=== PATIENT | male | born 1965 | race Caucasian/White ===

== ENCOUNTER → 2016-09-24 | Outpatient (REF) | payer OTHER ==
[~2016-09-24] MED LIST: /BACL20TA OR; /ESOM40CA OR; /FENO48TA OR; /ROPI5TA OR; AMBI10TA OR; ATEN50TA2 PO; COLE5GRA PO; COUM10TA OR; COUM10TA PO; DARV100T OR; DARV65CA OR; DEPA500T OR; ENOX40SY SC; FLEXERIL OR; FLEXERIL PO; GEMF600T PO; IBUP600T OR; IBUP800T OR; LAMI25TA PO; LEVO30TA PO; LISI-542 PO; MELATONIN OR; METF-414 PO; NAPR500T PO; NEUR100C OR; NEUR300C PO; PANT40TA2 PO; PERC5TAB8 OR; PRIM250T3 OR; PROP10TAB OR; REQU2TAB3 OR; SERT50TA2 OR; SIMV40TA2 OR; SYNTHROID PO; TOPI50TA OR; TRAM50TA2 OR; VERA120T OR; VIT D 2000 PO; VIT D 4000 OR; WARF1TAB OR; ZOCO40TA OR; ZOLO50TA OR; meloxicam OR
[2016-09-24 12:58] LABS: BASO # 0.1 K/mm3 (0.0-0.2); BASO % 1.3 % (0.0-1.0); EOS # 0.2 K/mm3 (0.0-0.50); EOS % 3.8 % (0.0-3.0); LARGE UNSTAINED CELL # 0.1 K/mm3 (0.0-0.4); LARGE UNSTAINED CELL % 2.2 % (0.0-4.0); LYMPH # 2.5 K/mm3 (1.5-4.5); LYMPH % 39.1 % (24.0-44.0); MEAN CORPUSCULAR HEMOGLOBIN 31.4 pg (27.0-33.0); MEAN CORPUSCULAR HGB CONC 34.8 g/dl (32.0-36.5); MEAN CORPUSCULAR VOLUME 90.4 fl (80.0-96.0); MONO # 0.3 K/mm3 (0.0-0.8); MONO % 4.8 % (0.0-5.0); NEUTROPHILS # 3.1 K/mm3 (1.8-7.7); NEUTROPHILS % 48.8 % (36.0-66.0); PLATELET COUNT, AUTOMATED 184 k/mm3 (150-450); RED CELL DISTRIBUTION WIDTH 12.8 % (11.5-14.5); WHITE BLOOD COUNT 6.3 K/mm3 (4.0-10.0)
[2016-09-24 13:09] LABS: ALBUMIN 3.9 GM/DL (3.2-5.2); ALBUMIN/GLOBULIN RATIO 1.18 (1.00-1.93); ALKALINE PHOSPHATASE 87 U/L (45-117); ALT/SGPT 49 U/L (12-78); ANION GAP 9 MEQ/L (8-16); AST/SGOT 26 U/L (15-37); BILIRUBIN,TOTAL 0.3 MG/DL (0.2-1.0); BLOOD UREA NITROGEN 19 MG/DL (7-18); CALCIUM LEVEL 9.3 MG/DL (8.5-10.1); CARBON DIOXIDE LEVEL 28 MEQ/L (21-32); CHLORIDE LEVEL 104 MEQ/L (98-107); CHOLESTEROL LEVEL 281 MG/DL (<200); CREATININE FOR GFR 1.51 MG/DL (0.70-1.30); FREE T4 0.82 NG/DL (0.76-1.46); GLOMERULAR FILTRATION RATE 51.9 (>56); GLUCOSE, FASTING 144 MG/DL (70-105); SODIUM LEVEL 141 MEQ/L (136-145); TOTAL PROTEIN 7.2 GM/DL (6.4-8.2); TRIGLYCERIDES LEVEL 415 MG/DL (<150)
== END ==
LOC: M LABDRWAD 12:30
PROVIDERS: ATTEND Nurse Practitioner Adult Health
DX: Z51.81 Encounter for therapeutic drug level monitoring (principal); Z79.899 Other long term (current) drug therapy; E11.9 Type 2 diabetes mellitus without complications; E78.2 Mixed hyperlipidemia; E66.01 Morbid (severe) obesity due to excess calories; E55.9 Vitamin D deficiency, unspecified

== ENCOUNTER 2016-12-08 10:52 | Emergency (ER) | payer OTHER ==
[~2016-12-08] VITALS: Ht 182.9 cm; Wt 130.4 kg
[~2016-12-08 10:52] MED LIST changes: -ATEN50TA2 PO; -COLE5GRA PO; -GEMF600T PO; -LAMI25TA PO; -LEVO30TA PO; -LISI-542 PO; -METF-414 PO; -NAPR500T PO; -NEUR300C PO; -PANT40TA2 PO
[2016-12-08 11:07] VITALS: O2SAT 93
[2016-12-08 11:23] LABS: BASO # 0.1 10^3/uL (0.0-0.2); BASO % 1.1 % (0.0-1.0); EOS # 0.2 10^3/uL (0.0-0.50); EOS % 3.3 % (0.0-3.0); IMMATURE GRANULOCYTE % 0.3 % (0-0); LYMPH # 2.2 10^3/uL (1.5-4.5); LYMPH % 34.9 % (24.0-44.0); MEAN CORPUSCULAR HEMOGLOBIN 30.8 pg (27.0-33.0); MEAN CORPUSCULAR VOLUME 90.7 fl (80.0-96.0); MONO # 0.5 10^3/uL (0.0-0.8); NEUTROPHILS # 3.3 10^3/uL (1.8-7.7); NEUTROPHILS % 52.4 % (36.0-66.0); PLATELET COUNT, AUTOMATED 195 10^3/uL (150-450); RED CELL DISTRIBUTION WIDTH 12.9 % (11.5-14.5); WHITE BLOOD COUNT 6.4 10^3/uL (4.0-10.0)
[2016-12-08] MEDS ORDERED: LAMI25TA PO (11:29)
[2016-12-08] MEDS ORDERED: GEMF600T PO (11:29)
[2016-12-08] MEDS ORDERED: ATEN50TA2 PO (11:29)
[2016-12-08] MEDS ORDERED: NEUR300C PO (11:29)
[2016-12-08] MEDS ORDERED: LEVO30TA PO (11:29)
[2016-12-08] MEDS ORDERED: PANT40TA2 PO (11:29)
[2016-12-08] MEDS ORDERED: LISI-542 PO (11:29)
[2016-12-08] MEDS ORDERED: METF-414 PO (11:29)
[2016-12-08] MEDS ORDERED: COLE5GRA PO (11:29)
[2016-12-08 11:49] LABS: ALBUMIN 3.7 GM/DL (3.2-5.2); ALBUMIN/GLOBULIN RATIO 0.95 (1.00-1.93); ALKALINE PHOSPHATASE 77 U/L (45-117); ALT/SGPT 52 U/L (12-78); ANION GAP 9 MEQ/L (8-16); AST/SGOT 27 U/L (15-37); BILIRUBIN,DIRECT < 0.1 MG/DL (0.0-0.2); BILIRUBIN,TOTAL 0.3 MG/DL (0.2-1.0); BLOOD UREA NITROGEN 22 MG/DL (7-18); CALCIUM LEVEL 8.9 MG/DL (8.5-10.1); CARBON DIOXIDE LEVEL 22 MEQ/L (21-32); CHLORIDE LEVEL 108 MEQ/L (98-107); CREATININE FOR GFR 2.26 MG/DL (0.70-1.30); GLOMERULAR FILTRATION RATE 32.6 (>56); GLUCOSE, FASTING 116 MG/DL (70-105); POTASSIUM SERUM 4.1 MEQ/L (3.5-5.1); SODIUM LEVEL 139 MEQ/L (136-145); TOTAL PROTEIN 7.6 GM/DL (6.4-8.2)
--- NOTE | 2016-12-08 12:36 | REP ---
Portable chest x-ray: Single sitting AP view. History: Chest pain. Comparison study: May 22, 2013. Findings: EKG monitoring electrodes overlie the chest. The heart is not enlarged. Pulmonary vasculature is not increased. Lung kovacs are clear. Impression: No active disease. Signed by Phil Collado MD 12/08/2016 01:00 P
[2016-12-08] MEDS ORDERED: NAPR500T PO (14:41)
[2016-12-08 14:49] VITALS: BP 118/79
--- NOTE | 2016-12-10 07:50 | ECGEPIP ---
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
--- NOTE | 2016-12-10 07:52 | ECGEPIP ---
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
== END 2016-12-08 15:22 | disposition home or self-care (01) ==
LOC: EDBD 10:52 → M ED 10:52
DX: R07.89 Other chest pain (principal); E11.9 Type 2 diabetes mellitus without complications; I10 Essential (primary) hypertension; F32.9 Major depressive disorder, single episode, unspecified; G89.29 Other chronic pain; M54.9 Dorsalgia, unspecified; Z79.84 Long term (current) use of oral hypoglycemic drugs; Z79.899 Other long term (current) drug therapy; Z88.5 Allergy status to narcotic agent

== ENCOUNTER → 2016-12-11 | Outpatient (CLI) | payer OTHER ==
[~2016-12-11] MED LIST changes: +ATEN50TA2 PO; +COLE5GRA PO; +GEMF600T PO; +LAMI25TA PO; +LEVO30TA PO; +LISI-542 PO; +METF-414 PO; +NAPR500T PO; +NEUR300C PO; +PANT40TA2 PO
--- NOTE | 2016-12-12 06:45 | REP ---
Clinical: Cervical Technique: AP, lateral, flexion/extension, swimmer's, bilateral oblique and open mouth views of the cervical spine. Findings: 2 mm of anterolisthesis is suggested at the C4-5 and C5-6 levels. Moderate multilevel anterior spurring along with minimal endplate sclerosis and disc space narrowing is also suggested. Acute fracture / compression injury. Oblique views cannot exclude elements of neural foraminal narrowing. Impression: Moderate multilevel degenerative changes including 2 mm of anterolisthesis at the C4-5 and C5-6 levels suggested. Signed by Ruperto Matt MD 12/12/2016 06:37 A
--- NOTE | 2016-12-12 06:47 | REP ---
Clinical: thoracic pain. Technique: AP, lateral, and swimmers views. Findings: Alignment and kyphosis is maintained. Vertebral bodies intact. No acute fracture / compression injury or subluxation. Moderate multilevel degenerative changes include anterior spurring/osteophyte formation with endplate sclerosis and minimal disc space narrowing. Impression: Moderate multilevel degenerative changes. Signed by Ruperto Matt MD 12/12/2016 06:39 A
== END ==
LOC: M ADAMS 09:10
PROVIDERS: ATTEND Physician Assistant Medical
DX: M50.322 Other cervical disc degeneration at C5-C6 level (principal); M51.34 Other intervertebral disc degeneration, thoracic region; M50.321 Other cervical disc degeneration at C4-C5 level

== ENCOUNTER → 2016-12-11 | Outpatient (REF) | payer OTHER ==
[2016-12-11 12:48] LABS: BASO # 0.1 10^3/uL (0.0-0.2); BASO % 1.4 % (0.0-1.0); EOS # 0.2 10^3/uL (0.0-0.50); EOS % 4.3 % (0.0-3.0); IMMATURE GRANULOCYTE % 0.2 % (0-0); LYMPH # 1.9 10^3/uL (1.5-4.5); LYMPH % 42.5 % (24.0-44.0); MEAN CORPUSCULAR HEMOGLOBIN 30.4 pg (27.0-33.0); MEAN CORPUSCULAR HGB CONC 33.2 g/dl (32.0-36.5); MEAN CORPUSCULAR VOLUME 91.6 fl (80.0-96.0); MONO # 0.4 10^3/uL (0.0-0.8); MONO % 8.4 % (0.0-5.0); NEUTROPHILS # 1.9 10^3/uL (1.8-7.7); NEUTROPHILS % 43.2 % (36.0-66.0); RED CELL DISTRIBUTION WIDTH 12.8 % (11.5-14.5); WHITE BLOOD COUNT 4.4 10^3/uL (4.0-10.0)
[2016-12-11 13:58] LABS: ALBUMIN 3.9 GM/DL (3.2-5.2); ALBUMIN/GLOBULIN RATIO 1.18 (1.00-1.93); BILIRUBIN,TOTAL 0.3 MG/DL (0.2-1.0); CALCIUM LEVEL 9.1 MG/DL (8.5-10.1); CREATININE FOR GFR 1.55 MG/DL (0.70-1.30); FREE T4 0.91 NG/DL (0.76-1.46); GLOMERULAR FILTRATION RATE 50.4 (>56); POTASSIUM SERUM 4.8 MEQ/L (3.5-5.1); TOTAL PROTEIN 7.2 GM/DL (6.4-8.2)
== END ==
LOC: M LAB REF 12:18
PROVIDERS: ATTEND Nurse Practitioner Adult Health
DX: Z51.81 Encounter for therapeutic drug level monitoring (principal); Z79.899 Other long term (current) drug therapy; E11.9 Type 2 diabetes mellitus without complications; E78.2 Mixed hyperlipidemia; E66.01 Morbid (severe) obesity due to excess calories; E03.9 Hypothyroidism, unspecified; G40.909 Epilepsy, unspecified, not intractable, without status epilepticus

== ENCOUNTER → 2017-04-23 | Outpatient (CLI) | payer OTHER, MEDICAID | LOC: M SLEEP 19:38 | DX: G47.33 Obstructive sleep apnea (adult) (pediatric) (principal) | CPT/HCPCS: 95811 ==

== ENCOUNTER → 2017-06-15 | Outpatient (CLI) | payer OTHER ==
[2017-06-15 11:27] LABS: BASO # 0.1 10^3/uL (0.0-0.2); BASO % 1.3 % (0.0-1.0); EOS # 0.2 10^3/uL (0.0-0.50); HEMATOCRIT 43.3 % (42.0-52.0); HEMOGLOBIN 14.7 g/dl (13.5-17.5); IMMATURE GRANULOCYTE % 0.2 % (0-3.0); LYMPH # 2.4 10^3/uL (1.5-4.5); LYMPH % 39.9 % (24.0-44.0); MEAN CORPUSCULAR HEMOGLOBIN 30.1 pg (27.0-33.0); MEAN CORPUSCULAR HGB CONC 33.9 g/dl (32.0-36.5); MEAN CORPUSCULAR VOLUME 88.7 fl (80.0-96.0); MONO # 0.5 10^3/uL (0.0-0.8); NEUTROPHILS # 2.8 10^3/uL (1.8-7.7); NEUTROPHILS % 46.6 % (36.0-66.0); PLATELET COUNT, AUTOMATED 205 10^3/uL (150-450); RED BLOOD COUNT 4.88 10^6/uL (4.30-6.10); RED CELL DISTRIBUTION WIDTH 12.6 % (11.5-14.5)
[2017-06-15 11:41] LABS: ESTIMATED AVERAGE GLUCOSE 120 MG/DL (60-110); HEMOGLOBIN A1c 5.8 %
[2017-06-15 12:01] LABS: ALBUMIN/GLOBULIN RATIO 1.14 (1.00-1.93); ALKALINE PHOSPHATASE 77 U/L (45-117); ALT/SGPT 36 U/L (12-78); ANION GAP 7 MEQ/L (8-16); AST/SGOT 24 U/L (7-37); BILIRUBIN,TOTAL 0.4 MG/DL (0.2-1.0); BLOOD UREA NITROGEN 20 MG/DL (7-18); CALCIUM LEVEL 8.9 MG/DL (8.5-10.1); CARBON DIOXIDE LEVEL 26 MEQ/L (21-32); CHLORIDE LEVEL 110 MEQ/L (98-107); CHOLESTEROL LEVEL 140 MG/DL (<200); CHOLESTEROL RISK RATIO 3.888 (<5); CREATININE FOR GFR 1.35 MG/DL (0.70-1.30); FREE T4 0.77 NG/DL (0.76-1.46); GLOMERULAR FILTRATION RATE 58.9 (>56); GLUCOSE, FASTING 118 MG/DL (70-100); HDL CHOLESTEROL 36 MG/DL (>40); NON-HDL-C 104 MG/DL; POTASSIUM SERUM 4.4 MEQ/L (3.5-5.1); SODIUM LEVEL 143 MEQ/L (136-145); TOTAL PROTEIN 7.5 GM/DL (6.4-8.2); TRIGLYCERIDES LEVEL 185 MG/DL (<150)
[2017-06-17 11:40] LABS: TOTAL 25(OH) VITAMIN D 37.3 NG/ML (30.0-100.0)
== END ==
LOC: M LAB 10:02
DX: Z51.81 Encounter for therapeutic drug level monitoring (principal); Z79.899 Other long term (current) drug therapy; G40.909 Epilepsy, unspecified, not intractable, without status epilepticus; E03.9 Hypothyroidism, unspecified; E78.4 Other hyperlipidemia; E11.9 Type 2 diabetes mellitus without complications
CPT/HCPCS: 84443

== ENCOUNTER 2017-09-02 20:53 | Emergency (ER) | payer OTHER ==
[2017-09-02 22:50] LABS: BASO % 0.5 % (0.0-1.0); EOS # 0.2 10^3/uL (0.0-0.50); EOS % 2.1 % (0.0-3.0); HEMATOCRIT 38.7 % (42.0-52.0); HEMOGLOBIN 13.3 g/dl (13.5-17.5); IMMATURE GRANULOCYTE % 0.2 % (0-3.0); LYMPH # 2.4 10^3/uL (1.5-4.5); LYMPH % 27.5 % (24.0-44.0); MEAN CORPUSCULAR HEMOGLOBIN 30.6 pg (27.0-33.0); MEAN CORPUSCULAR HGB CONC 34.4 g/dl (32.0-36.5); MEAN CORPUSCULAR VOLUME 89.2 fl (80.0-96.0); MONO # 0.6 10^3/uL (0.0-0.8); MONO % 7.3 % (0.0-5.0); NEUTROPHILS # 5.3 10^3/uL (1.8-7.7); NEUTROPHILS % 62.4 % (36.0-66.0); PLATELET COUNT, AUTOMATED 193 10^3/uL (150-450); RED BLOOD COUNT 4.34 10^6/uL (4.30-6.10); WHITE BLOOD COUNT 8.6 10^3/uL (4.0-10.0)
[2017-09-02 22:53] LABS: KETONE, URINE AUTO RFX NEGATIVE (NEGATIVE); LEUKOCYTE ESTERASE UR AUTO RFX NEGATIVE (NEGATIVE); MUCUS, URINE RFX SMALL (NEGATIVE); NITRITE, URINE AUTO RFX NEGATIVE (NEGATIVE); RBC, URINE AUTO RFX 15 /HPF (0-3); SPECIFIC GRAVITY UR AUTO RFX 1.024 (1.002-1.035); SQUAM EPITHELIAL CELL UR AURFX 0 /HPF (0-6); WBC, URINE AUTO RFX 1 /HPF (0-3)
[2017-09-02 23:10] LABS: ANION GAP 8 MEQ/L (8-16); BLOOD UREA NITROGEN 19 MG/DL (7-18); CALCIUM LEVEL 9.1 MG/DL (8.5-10.1); CARBON DIOXIDE LEVEL 25 MEQ/L (21-32); CHLORIDE LEVEL 108 MEQ/L (98-107); CREATININE FOR GFR 1.23 MG/DL (0.70-1.30); GLOMERULAR FILTRATION RATE > 60.0 (>56); GLUCOSE, FASTING 99 MG/DL (70-100); SODIUM LEVEL 141 MEQ/L (136-145)
[2017-09-02 23:36] LABS: INR 1.08; PROTHROMBIN TIME 14.1 SECONDS (12.1-14.4)
[2017-09-02] MEDS: CEPHALEXIN 500 MG CAP PO (23:36)
[2017-09-02 23:37] LABS: PARTIAL THROMBOPLASTIN TIME 27.8 SECONDS (25.4-37.6)
== END 2017-09-03 00:04 | disposition home or self-care (01) ==
LOC: M ED 09-03 00:04
DX: L03.115 Cellulitis of right lower limb (principal); L03.116 Cellulitis of left lower limb; E11.9 Type 2 diabetes mellitus without complications; I10 Essential (primary) hypertension; E78.5 Hyperlipidemia, unspecified; Z86.711 Personal history of pulmonary embolism; Z86.718 Personal history of other venous thrombosis and embolism; F32.9 Major depressive disorder, single episode, unspecified; Z79.899 Other long term (current) drug therapy; Z88.5 Allergy status to narcotic agent
CPT/HCPCS: 93970

== ENCOUNTER → 2018-06-16 | Outpatient (CLI) | payer OTHER ==
[~2018-06-16] MED LIST changes: -/BACL20TA OR; -/ESOM40CA OR; -/FENO48TA OR; -/ROPI5TA OR; +BACL1TAB9 OR; -ENOX40SY SC; +ESZO1TAB4; -GEMF600T PO; +GEMF600T5 PO; +KEFL500C17 PO; +LOVE1INJ SC; +NAPR-837 PO; -NAPR500T PO; +NEXI1CAP3 OR; -PANT40TA2 PO; +PANT40TA3 PO; +QUET5TAB; +REQU1TAB15 OR; +TRIC1TAB OR
[2018-06-16 10:15] LABS: BASO # 0.1 10^3/uL (0.0-0.2); BASO % 1.1 % (0.0-1.0); EOS # 0.2 10^3/uL (0.0-0.50); EOS % 3.7 % (0.0-3.0); HEMATOCRIT 41.7 % (42.0-52.0); HEMOGLOBIN 14.1 g/dl (13.5-17.5); LYMPH # 2.4 10^3/uL (1.5-4.5); LYMPH % 42.3 % (24.0-44.0); MEAN CORPUSCULAR HEMOGLOBIN 30.8 pg (27.0-33.0); MEAN CORPUSCULAR HGB CONC 33.8 g/dl (32.0-36.5); MONO # 0.4 10^3/uL (0.0-0.8); MONO % 7.6 % (0.0-5.0); NEUTROPHILS # 2.6 10^3/uL (1.8-7.7); NEUTROPHILS % 44.9 % (36.0-66.0); PLATELET COUNT, AUTOMATED 181 10^3/uL (150-450); RED BLOOD COUNT 4.58 10^6/uL (4.30-6.10); WHITE BLOOD COUNT 5.7 10^3/uL (4.0-10.0)
[2018-06-16 10:52] LABS: ALBUMIN 3.6 GM/DL (3.2-5.2); ALT/SGPT 28 U/L (12-78); BILIRUBIN,TOTAL 0.2 MG/DL (0.2-1.0); BLOOD UREA NITROGEN 18 MG/DL (7-18); CALCIUM LEVEL 8.6 MG/DL (8.5-10.1); CARBON DIOXIDE LEVEL 29 MEQ/L (21-32); CHLORIDE LEVEL 108 MEQ/L (98-107); CHOLESTEROL LEVEL 161 MG/DL (<200); CHOLESTEROL RISK RATIO 4.878 (<5); CREATININE FOR GFR 0.98 MG/DL (0.70-1.30); FREE T4 0.76 NG/DL (0.76-1.46); GLOMERULAR FILTRATION RATE > 60.0 (>56); GLUCOSE, FASTING 132 MG/DL (70-100); HDL CHOLESTEROL 33 MG/DL (>40); NON-HDL-C 128 MG/DL; POTASSIUM SERUM 4.2 MEQ/L (3.5-5.1); SODIUM LEVEL 141 MEQ/L (136-145); TOTAL PROTEIN 6.7 GM/DL (6.4-8.2); TRIGLYCERIDES LEVEL 345 MG/DL (<150)
[2018-06-16 12:51] LABS: HEMOGLOBIN A1c 5.7 %
== END ==
LOC: M LAB 08:08
PROVIDERS: ATTEND Physician Assistant Medical
DX: R53.83 Other fatigue (principal); I10 Essential (primary) hypertension; E78.2 Mixed hyperlipidemia; E03.9 Hypothyroidism, unspecified; E11.9 Type 2 diabetes mellitus without complications

== ENCOUNTER 2020-07-27 18:22 | Observation (INO) | payer OTHER ==
[~2020-07-27] VITALS: Ht 182.9 cm; Wt 126.5 kg
[~2020-07-27 18:22] MED LIST changes: -LISI-542 PO; +LISI-898 PO; +PANT40TA29 PO; -PANT40TA3 PO; +QUET50TA3; -QUET5TAB
--- NOTE | 2020-07-27 18:59 | REP ---
INDICATION: CHEST PAIN. COMPARISON: 12/08/2016 TECHNIQUE: Portable FINDINGS: The technique utilized in obtaining the radiograph has magnified the cardiac silhouette and accentuated the interstitial markings. The superior mediastinal structures are midline. The cardiac silhouette is unremarkable in size, shape, and position. The diaphragmatic surfaces of the lungs are regular, and the costophrenic angles are clear. The pulmonary kovacs are clear. The imaged osseous structures are intact. IMPRESSION: There is no acute cardiopulmonary disease. <Electronically signed by Blake Avalos > 07/27/20 [id number]
[2020-07-27 19:04] LABS: BASO # 0.1 10^3/uL (0.0-0.2); BASO % 0.7 % (0.0-1.0); EOS # 0.2 10^3/uL (0.0-0.5); EOS % 1.7 % (0.0-3.0); HEMATOCRIT 39.5 % (42.0-52.0); HEMOGLOBIN 13.6 g/dl (13.5-17.5); LYMPH # 1.8 10^3/uL (1.5-5.0); LYMPH % 20.3 % (24.0-44.0); MEAN CORPUSCULAR HEMOGLOBIN 30.3 pg (27.0-33.0); MEAN CORPUSCULAR HGB CONC 34.4 g/dl (32.0-36.5); MONO # 0.4 10^3/uL (0.0-0.8); NEUTROPHILS # 6.3 10^3/uL (1.5-8.5); PLATELET COUNT, AUTOMATED 200 10^3/uL (150-450); RED BLOOD COUNT 4.49 10^6/uL (4.30-6.10); WHITE BLOOD COUNT 8.8 10^3/uL (4.0-10.0)
[2020-07-27] MEDS ORDERED: LISI10TA22 PO (19:24)
[2020-07-27] MEDS ORDERED: LAMO100T3 PO ×2 (19:24→22:44)
[2020-07-27] MEDS ORDERED: LEVO88TA3 PO (19:24)
[2020-07-27 19:31] LABS: ALBUMIN 3.8 GM/DL (3.2-5.2); ALT/SGPT 42 U/L (12-78); BILIRUBIN,TOTAL 0.4 MG/DL (0.2-1.0); BLOOD UREA NITROGEN 20 MG/DL (7-18); CALCIUM LEVEL 9.3 MG/DL (8.5-10.1); CARBON DIOXIDE LEVEL 23 MEQ/L (21-32); CHLORIDE LEVEL 112 MEQ/L (98-107); CK-MB VALUE MASS < 1.0 NG/ML (<3.6); CPK CREATINE PHOSPHOKINASE 100 U/L (39-308); CREATININE FOR GFR 1.18 MG/DL (0.70-1.30); GLOMERULAR FILTRATION RATE > 60.0 (>56); GLUCOSE, FASTING 94 MG/DL (70-100); POTASSIUM SERUM 3.8 MEQ/L (3.5-5.1); SODIUM LEVEL 142 MEQ/L (136-145); TOTAL PROTEIN 7.4 GM/DL (6.4-8.2); TROPONIN I < 0.02 NG/ML (< 0.10)
[2020-07-27] MEDS ORDERED: ISOVUE-370 76% 100ML VIAL As Ordered ONE (19:42)
[2020-07-27 19:49] LABS: BILIRUBIN,DIRECT 0.1 MG/DL (0.0-0.2); LIPASE 115 U/L (73-393); NT-PRO BNP 62 PG/ML (<125)
--- NOTE | 2020-07-27 21:03 | REPVR ---
PROCEDURE INFORMATION: Exam: CTA Chest Without And With Contrast Exam date and time: 07/27/2020 7:54 PM Age: 55 years old Clinical indication: Other: Pleuritic L chest pain TECHNIQUE: Imaging protocol: Computed tomographic angiography of the chest without and with contrast. 3D rendering (Not supervised by radiologist): MIP and/or 3D reconstructed images were created by the technologist. Radiation optimization: All CT scans at this facility use at least one of these dose optimization techniques: automated exposure control; mA and/or kV adjustment per patient size (includes targeted exams where dose is matched to clinical indication); or iterative reconstruction. Contrast material: ISOVUE 370; Contrast volume: 75 ml; Contrast route: INTRAVENOUS (IV); COMPARISON: [place] PORTABLE CHEST X-RAY 07/27/2020 6:37 PM FINDINGS: Pulmonary arteries: Normal. No pulmonary emboli. Aorta: Unremarkable. No aortic aneurysm. No aortic dissection. Lungs: Unremarkable. No consolidation. No masses. Pleural spaces: Unremarkable. No pneumothorax. No pleural effusion. Heart: Unremarkable. No cardiomegaly. No pericardial effusion. Lymph nodes: Unremarkable. No enlarged lymph nodes. Liver: The liver is low attenuation indicating hepatic steatosis. Bones/joints: Unremarkable. No acute fracture. Soft tissues: Unremarkable. IMPRESSION: 1. Hepatic steatosis. 2. No acute findings. Electronically signed by: Vinh Koehler On 07/27/2020 21:02:56 PM
--- NOTE | 2020-07-27 21:04 | ECGEPIP ---
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
--- NOTE | 2020-07-27 21:06 | REPVR ---
PROCEDURE INFORMATION: Exam: XR Left Knee Exam date and time: 07/27/2020 8:18 PM Age: 55 years old Clinical indication: Other: Trauma TECHNIQUE: Imaging protocol: XR Left knee. Views: 4 or more views. COMPARISON: CR Knee, Ap, Lat 09/03/2015 9:16 PM FINDINGS: Bones/joints: Osteoarthritis with medial compartment joint space narrowing and advanced degenerative changes in the patellofemoral joint. No fracture or malalignment. Soft tissues: Normal. IMPRESSION: 1. Osteoarthritis. 2. No fracture or malalignment. Electronically signed by: Vinh Koehler On 07/27/2020 21:05:32 PM
[2020-07-27] MEDS ORDERED: LOPI600T PO (22:44)
[2020-07-27] MEDS ORDERED: METF-839 PO (22:50)
[2020-07-27] MEDS ORDERED: ATOR40TA75 PO (22:50)
[2020-07-27] MEDS ORDERED: SERT50TA29 PO (22:50)
[2020-07-27] MEDS ORDERED: ALBU8.5H INH (22:50)
[2020-07-27] MEDS ORDERED: QUET50TA3 PO (22:50)
[2020-07-27] MEDS ORDERED: FLON1SPR (22:50)
[2020-07-27] MEDS ORDERED: VITA50005 PO (22:50)
[2020-07-27] MEDS ORDERED: NITROGLYCERIN 0.4 MG SUBL TABLET SL PRN (23:20)
[2020-07-27] MEDS ORDERED: DEXTROSE 50% 50 ML SYRINGE IV PRN (23:25)
[2020-07-27] MEDS ORDERED: GLUCOSE 4GM CHEW TABLET PO PRN (23:25)
[2020-07-27] MEDS ORDERED: GLUCAGON INJ 1MG VIAL SC PRN (23:25)
[2020-07-28] MEDS ORDERED: NS 1,000 ML IV SCH (00:30)
[2020-07-28 00:54] LABS: CK-MB VALUE MASS < 1.0 NG/ML (<3.6); CPK CREATINE PHOSPHOKINASE 95 U/L (39-308); MAGNESIUM LEVEL 1.4 MG/DL (1.8-2.4); MB/CK RELATIVE INDEX 1.05 (< OR =4); TROPONIN I < 0.02 NG/ML (< 0.10)
[2020-07-28 00:55] LABS: RSV AMPLIFICATION NEGATIVE (NEGATIVE)
[2020-07-28 02:20] VITALS: BP 136/77
[2020-07-28] MEDS ORDERED: ALBUTEROL 90 MCG/ACT 8GM HFA INHALER INH PRN (03:15)
[2020-07-28] MEDS ORDERED: FLUTICASONE PROP 0.05% NASAL SPRAY 16 GM (FLONASE) PRN (03:15)
[2020-07-28] MEDS ORDERED: PILL CUTTER 1 EACH XX PRN (03:40)
[2020-07-28 04:00] VITALS: BP 118/64
[2020-07-28] MEDS: ATORVASTATIN 20 MG TAB PO SCH ×2 (04:14→20:52)
[2020-07-28] MEDS ORDERED: MAG SULF 1GM/100ML (MAG RUN) 1 GM in IV 1 EA IV ONE (04:55)
[2020-07-28 05:18] LABS: BASO % 0.6 % (0.0-1.0); EOS # 0.2 10^3/uL (0.0-0.5); EOS % 2.9 % (0.0-3.0); HEMOGLOBIN 13.2 g/dl (13.5-17.5); LYMPH # 2.1 10^3/uL (1.5-5.0); LYMPH % 30.7 % (24.0-44.0); MEAN CORPUSCULAR HEMOGLOBIN 30.6 pg (27.0-33.0); MEAN CORPUSCULAR HGB CONC 34.7 g/dl (32.0-36.5); MEAN CORPUSCULAR VOLUME 88.2 fl (80.0-96.0); MONO # 0.5 10^3/uL (0.0-0.8); MONO % 6.9 % (2.0-8.0); NEUTROPHILS # 4.1 10^3/uL (1.5-8.5); NEUTROPHILS % 58.5 % (36.0-66.0); PLATELET COUNT, AUTOMATED 165 10^3/uL (150-450); RED BLOOD COUNT 4.31 10^6/uL (4.30-6.10); WHITE BLOOD COUNT 6.9 10^3/uL (4.0-10.0)
[2020-07-28] MEDS ORDERED: ENOXAPARIN 40MG/0.4ML SYRINGE (J1650 PER 10MG) SC ONE (05:30)
[2020-07-28 05:48] LABS: BLOOD UREA NITROGEN 18 MG/DL (7-18); CALCIUM LEVEL 8.9 MG/DL (8.5-10.1); CARBON DIOXIDE LEVEL 24 MEQ/L (21-32); CHLORIDE LEVEL 111 MEQ/L (98-107); GLOMERULAR FILTRATION RATE > 60.0 (>56); GLUCOSE, FASTING 128 MG/DL (70-100); HEMOGLOBIN A1c 5.8 %; POTASSIUM SERUM 3.5 MEQ/L (3.5-5.1); SODIUM LEVEL 142 MEQ/L (136-145); THYROID STIMULATING HORMONE 0.222 uIU/ML (0.358-3.740); TROPONIN I < 0.02 NG/ML (< 0.10)
--- NOTE | 2020-07-28 05:53 | HPEPDOC ---
General Date of Admission Jul 27, 2020 at 23:07 Date of Service: Jul 27, 2020 Chief Complaint The patient is a 55-year-old male admitted with a reason for visit of Chest Wall Pain, Syncope. Source: Patient, Family, RN/MD Exam Limitations: Mild cognitive slowing Timing/Duration: Intermittent Severity: Mild Associated Symptoms: Chest Pain, Syncope History of Present Illness Mr. 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 Patient and his family denies he hit his head or lost consciousness. He denies nausea, vomiting and says the chest pain has occurred multiple times causing him to wear a Holter monitor for several weeks. In reviewing his laboratory workup his troponin is <0.02, LFT's are normal, BUN is mildly elevated to 20 with serum creatinine of 1.18, pro-BNP normal range at 62, NA 142 and K 3.8. Will order magnesium level on patient has his antipsychotic medications can cause Low magnesium. Mr. Segura will be admitted to [facility] telemetry with continuous pulse oximetry for Chest pain and Syncopal episode with echocardiogram ordered for in the morning. Home Medications Scheduled Atenolol (Atenolol) 50 Mg Tab, 50 MG PO DAILY, (Reported) Atorvastatin Calcium (Atorvastatin Calcium) 40 Mg Tablet, 40 MG PO QHS, (Reported) Ergocalciferol (Vitamin D2) (Vitamin D2) 50,000 Units Cap, 50,000 UNITS PO QWEEK, (Reported) TUESDAYS Gabapentin (Neurontin) 300 Mg Cap, 300 MG PO TID, (Reported) Gemfibrozil (Lopid) 600 Mg Tablet, 600 MG PO BID, (Reported) Lamotrigine (Lamotrigine) 100 Mg Tablet, 100 MG PO DAILY, (Reported) Lamotrigine (Lamotrigine) 100 Mg Tablet, 50 MG PO QHS, (Reported) Levothyroxine Sodium (Levothyroxine Sodium) 88 Mcg Tablet, 88 MCG PO DAILY, (Reported) Lisinopril (Lisinopril) 10 Mg Tablet, 10 MG PO DAILY, (Reported) Metformin HCl (Metformin HCl) 500 Mg Tablet, 500 MG PO BID, (Reported) Pantoprazole Sodium (Pantoprazole Sodium) 40 Mg Tab, 40 MG PO DAILY, (Reported) Quetiapine Fumarate (Quetiapine Fumarate) 50 Mg Tablet, 50 MG PO DAILY, (Reported) Sertraline HCl (Sertraline HCl) 50 Mg Tablet, 50 MG PO DAILY, (Reported) Scheduled PRN Albuterol Sulfate (Albuterol Sulfate Hfa) 8.5 Gm Hfa.aer.ad, 2 PUFFS INH QID PRN for SHORTNESS OF BREATH, (Reported) Fluticasone Propionate (Flonase Allergy Relief) 9.9 Ml [place].susp, 1 SPRAY NA BID PRN for NASAL CONGESTION, (Reported) Allergies Coded Allergies: codeine (Verified Adverse Reaction, Severe, HYPOTENSIVE/PASSSED OUT/STOPPED BREATHING, 07/27/20) Past Medical History Medical History Migraine headaches, SHOALWATER bilateral, Tinnitus bilateral, HLD, HTN, PE (11/05), GERD, DM, JORGE on cpap at home, Osteoarthritis Surgical History Myringotomy tubes as a child, Right hand orthopedic surgery, Right knee x2 and Left ankle ORIF. Family History Significant Family History: Noncontributory Social History * Smoker: Denies Alcohol: Denies Drugs: denies Psychosocial History: Decreased mood, Depression, Mood disorder NOS A-FIB/CHADSVASC A-FIB History Current/History of A-Fib/PAF?: No Review of Systems Constitutional: Reports: Fatigue, Other (Brother in-law aided with answering ROS and history) Eyes: Denies: Pain, Vision change, Conjunctivae inflammation, Eyelid inflammati on, Redness, Other Skin: Denies: Rash, Lesions, Jaundice, Bruising, Itching, Dry, Breakdown, Nail Changes, Other Pulmonary: Reports: Dyspnea Cardiovascular: Reports: Chest Pain, Edema, Lt Headedness Genitourinary: Denies: Dysuria, Frequency, Incontinence, Hematuria, Retention, Other Symptoms Hematologic: Denies: Bruising, Bleeding Excessively, Petecchia, Purpura, Enlarged Lymph Nodes, Other Hematologic Endocrine: Denies: Polydipsia, Polyphagia, Polyuria, Heat Intolerance, Cold Intolerance, Other Endocrine Sx Neurological: Reports: Weakness Psych: Reports: Anxiety, Depression, Memory Issues Physical Examination General Exam: Positive: Alert, Cooperative, No Acute Distress Eye Exam: Positive: PERRLA, Conjunctiva & lids normal ENT Exam: Positive: Atraumatic, Mucous membr. moist/pink, Other ENT (lips dry and SHOALWATER bilateral) Neck Exam: Positive: Supple Chest Exam: Positive: Clear to auscultation, Normal air movement Heart Exam: Positive: Rate Normal, Normal S1, Normal S2 Abdomen Exam: Positive: Normal bowel sounds, Soft Extremity Exam: Positive: Normal pulses Skin Exam: Positive: Nl turgor and temperature Neuro Exam: Positive: Cranial Nerves 3-12 NL Psych Exam: Positive: Mental status NL, Mood NL, Other (cognitive delay; speech slow) Vital Signs Vital Signs Date Time Temp Pulse Resp B/P (MAP) Pulse Ox O2 Delivery O2 Flow Rate FiO2 07/27/20 20:22 70 18 133/72 (92) 97 Room Air 07/27/20 18:35 98.0 Laboratory Data Labs 24H Laboratory Tests 2 07/27/20 18:42: Immature Granulocyte % (Auto) 0.3, Neutrophils (%) (Auto) 72.0H, Lymphocytes (%) (Auto) 20.3L, Monocytes (%) (Auto) 5.0, Eosinophils (%) (Auto) 1.7, Basophils (%) (Auto) 0.7, Neutrophils # (Auto) 6.3, Lymphocytes # (Auto) 1.8, Monocytes # (Auto) 0.4, Eosinophils # (Auto) 0.2, Basophils # (Auto) 0.1, Nucleated Red Blood Cells % (auto) 0.0, Anion Gap 7L, Glomerular Filtration Rate > 60.0, Calcium Level 9.3, Total Bilirubin 0.4, Direct Bilirubin 0.1, Aspartate Amino Transf (AST/SGOT) 26, Alanine Aminotransferase (ALT/SGPT) 42, Alkaline Phosphatase 80, Total Creatine Kinase 100, Creatine Kinase MB < 1.0, Creatine Kinase MB Relative Index 1.00, Troponin I < 0.02, ZC-Qdp-G-Type Natriuretic Peptide 62, Total Protein 7.4, Albumin 3.8, Albumin/Globulin Ratio 1.1, Lipase 115 CBC/BMP Laboratory Tests 07/27/20 18:42 Problems (1) Syncope Status: Acute Problem Specific Plan: Monitor Clinically, Repeat Labs Problem Text: Mr. Segura is a 55 year-old admitted to [facility] for Syncope and Chest pain. Syncope-Acute Plan Admit to observation unit on telemetry Orthostatic vital signs q shift Monitor I&O Fall precaution Echocardiogram in AM IVF NS at 100 ml/hr Check am labs and replace electrolytes as needed Hypomagnesium-Acute Magnesium 1.4-ordered 1GM IV Magnesium Sulfate replacement (1 run) Chest pain-Acute on Chronic NPO after midnight for Cardiac Stress test if troponin remains negative Troponin q 6 hours (first troponin <0.02) Nitrostat SL 0.4 mg prn chest pain with max 3 tabs 5 minutes apart for 15 min total Hypothyroidisms-chronic Check TSH in am Continue Levothyroxine 88 mcg po on empty stomach 2 hours before breakfast. Diabetes Mellitus Insulin dependent with peripheral diabetic neuropathy-chronic SS insulin AC &HS SQ POC glucose check AC & HS Continue home medication : Gabapentin 300 mg po tid Essential Hypertension-chronic continue home medication-Lisinopril 10 mg po daily Atenolol 50 mg po daily Hyperlipidemia-Chronic continue home medication: Lopid 600 mg po bid; Atorvastatin 40 mg po qHS Depression with Mood Disorder-Chronic continue Zoloft 50 mg daily; Lamictal 100 mg po daily and 50 mg po qHS; Seroquel 50 mg po daily Vitamin D Deficiency-chronic continue home medication Vitamin D 50,000 units po q 7 days on Tuesdays Seasonal allergies-chronic continue Flonase 50mcg 1 spray each nostril bid prn Full code, Mom and Sister (Laura Male) are his HCPs/ PPI Prophylaxis: continue Protonix-GERD DVT Prophylaxis: Heparin 5000 IU SQ TID; BLE-SCDS and BLAINE HOSE Discharge: Pending clinical course (2) Chest wall pain Status: Acute Problem Specific Plan: Monitor Clinically, Repeat Labs Plan / VTE VTE Prophylaxis Ordered?: Yes VTE Exclusion Mechanical Proph: N/A:VTE Prophy Ordered VTE Exclusion Pharmacological: N/A:VTE Prophy Ordered Plan IVF: Initiate Diet: Make NPO Activity: Encourage Ambulation Diagnostics: Check Labs, Repeat Labs in AM, Nuclear Med Study RADHA FITCH Jul 27, 2020 23:22
[2020-07-28] MEDS: HumaLOG INSULIN (NovoLOG) PER UNIT SC SCH ×4 (05:55→16:45)
[2020-07-28] MEDS ORDERED: LEVOTHYROXINE 88MCG TABLET (0.088 MG) PO SCH (06:00)
[2020-07-28 07:34] VITALS: BP_SYST 114; BP_SYST 129; BP_SYST 136; BP_DIAS 69; BP_DIAS 72; BP_DIAS 78
[2020-07-28 08:07] VITALS: BP 136/77
[2020-07-28] MEDS: lamoTRIgine 100MG TAB PO SCH (08:07)
[2020-07-28] MEDS: GABAPENTIN 300 MG CAP PO SCH ×3 (08:07→20:52)
[2020-07-28] MEDS: QUEtiapine FUMARATE 50MG TAB PO SCH (08:07)
[2020-07-28] MEDS: atenoloL 50 MG TAB PO SCH (08:07)
[2020-07-28] MEDS: PANTOPRAZOLE 40MG TAB (PROTONIX) PO SCH (08:07)
[2020-07-28] MEDS: SERTRALINE HCL 50 MG TAB PO SCH (08:07)
--- NOTE | 2020-07-28 12:58 | IPNPDOC ---
Text Note Date of Service The patient was seen on 07/28/20. NOTE Subjective: No any acute events overnight. Patient denied fever, chills, nausea, diarrhea. 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, HTN, HLD, Hypothyroidism, seasonal allergies, depression with mood disorder, GERD and Vitamin D Deficiency, presents to the hospital after syncope episode and left- sided chest pain Chest pain Resolved for now EKG does not show any acute ischemic changes, troponin negative Patient has multiple risk factors for ischemic heart diseases Patient will need stress study in the outpatient settings Continue to monitor telemetry Syncope Most likely secondary to dehydration superimposed with possible autonomic neuropathy secondary to diabetes Orthostatic vital signs checked in the morning, positive IV fluid Echo Continue to monitor orthostatic vital signs Hyperlipidemia Continues statin Hypertension Blood pressure under control Continue home meds Hypothyroidism TSH is low, I will decrease the dose of Synthroid Type 2 diabetes Well-controlled Insulin sliding scale Glucose level under control Electrolytes imbalance Replaced Depression Continue home meds VS,Fishbone, I+O VS, Fishbone, I+O Laboratory Tests 07/27/20 18:42 07/28/20 04:59 07/28/20 05:01 Vital Signs Date Time Temp Pulse Resp B/P (MAP) Pulse Ox O2 Delivery O2 Flow Rate FiO2 07/28/20 08:07 136/77 07/28/20 07:41 98.1 68 18 97 Room Air HIRAM MCDONALD DO Jul 28, 2020 12:58
[2020-07-28] MEDS ORDERED: DEXTROSE 50% 50 ML SYRINGE IV PRN (13:10)
[2020-07-28] MEDS ORDERED: GLUCAGON INJ 1MG VIAL SC PRN (13:10)
[2020-07-28] MEDS ORDERED: GLUCOSE 4GM CHEW TABLET PO PRN (13:10)
[2020-07-28 14:00] VITALS: BP_SYST 103; BP_SYST 112; BP_SYST 114; BP_DIAS 56; BP_DIAS 62; BP_DIAS 66
[2020-07-28] MEDS ORDERED: ENOXAPARIN 40MG/0.4ML SYRINGE (J1650 PER 10MG) SC SCH (17:00)
--- NOTE | 2020-07-28 17:42 | ECHO ---
ECHOCARDIOGRAM DATE OF PROCEDURE: 07/28/2020 Age: 55 Gender: Male Height: 64 inches Weight: 280 pounds Body surface area: 2.26 m2 PATIENT LOCATION: Inpatient, PCU Room 3229. REFERRING PHYSICIAN: CHECO Clancy. INDICATION: Syncope. MEASUREMENTS: 2D Measurements: RV 4.3 cm LV 5.4 cm Septum 1.3 cm Posterior wall 1.3 cm Aortic Root 3.7 cm LA 4.6 cm LVEF 55% Doppler Measurements: AV 1.35 m/s LVOT Off angle by more than 50 degrees LVOT diameter 2.0 cm MV-E 73, A 53, E/A ratio 1.4 Early mitral deceleration time 169 msec E prime medial 7.3, A prime medial 7.6, E prime lateral 5.6 Average E/E prime ratio 11.3/PCWP 15.8 mmHg PV 0.9 m/s Pulmonary artery acceleration time 106 msec RVSP 36 mmHg IVC 1.6 cm COMMENTS: Sinus bradycardia without intraventricular conduction disturbance. Technically challenging study in light of the patient's body habitus, but diagnostically useful information was still obtained. Mild symmetrical left ventricular hypertrophy with normal wall motion. Moderate left atrial enlargement with grade 2 LV diastolic dysfunction with current estimated mean left atrial pressure upper limits of normal. Mildly dilated right heart chambers with normal wall motion and Doppler evidence of mild pulmonary hypertension. Currently normal IVC size and collapse against an elevated central venous pressure. Normal aortic dimensions. Slightly thickened edges of the aortic cusps without functional abnormality. Minimal mitral annular thickening with normal leaflet excursion and no posterior systolic buckling and only very mild mitral insufficiency. Normal appearing tricuspid valve with mild insufficiency (physiologic). No apparent intracardiac mass or pericardial effusion. MTDD
[2020-07-28 20:00] VITALS: BP 132/67
[2020-07-28] MEDS ORDERED: lamoTRIgine 100MG TAB PO SCH (21:00)
[2020-07-28] MEDS ORDERED: HumaLOG INSULIN (NovoLOG) PER UNIT SC SCH (21:00)
[2020-07-29] VITALS: BP_SYST 149; BP_SYST 153; BP_DIAS 77; BP_DIAS 84; BP_DIAS 90
[2020-07-29 04:00] VITALS: BP 137/61
[2020-07-29] MEDS ORDERED: LEVOTHYROXINE 75MCG TABLET (0.075MG) PO SCH (06:00)
[2020-07-29 08:00] VITALS: BP 130/82
[2020-07-29] MEDS: QUEtiapine FUMARATE 50MG TAB PO SCH (08:25)
[2020-07-29] MEDS: GABAPENTIN 300 MG CAP PO SCH (08:25)
[2020-07-29] MEDS: lamoTRIgine 100MG TAB PO SCH (08:25)
[2020-07-29] MEDS: PANTOPRAZOLE 40MG TAB (PROTONIX) PO SCH (08:25)
[2020-07-29] MEDS: SERTRALINE HCL 50 MG TAB PO SCH (08:25)
[2020-07-29] MEDS: atenoloL 50 MG TAB PO SCH (08:25)
[2020-07-29] MEDS: HumaLOG INSULIN (NovoLOG) PER UNIT SC SCH (08:26)
[2020-07-29] MEDS ORDERED: LEVO75TA4 PO (11:00)
--- NOTE | 2020-07-29 17:20 | DS.PDOC ---
Discharge Summary General Date of Admission Jul 27, 2020 at 23:07 Date of Discharge 07/31/20 Discharge Summary PROCEDURES PERFORMED DURING STAY: [None]. ADMITTING DIAGNOSES: Chest pain Syncope Hyperlipidemia Hypertension Hypothyroidism Type 2 diabetes Electrolytes imbalance Depression DISCHARGE DIAGNOSES: Chest pain Syncope Hyperlipidemia Hypertension Hypothyroidism Type 2 diabetes Electrolytes imbalance Depression COMPLICATIONS/CHIEF COMPLAINT: Chest Wall Pain, Syncope. HISTORY OF PRESENT ILLNESS: Patient is 55 years old male with past medical history of chest pain, diabetes mellitus Insulin dependent with diabetic peripheral neuropathy, HTN, HLD, Hypothyroidism, seasonal allergies, depression with mood disorder, GERD and Vitamin D Deficiency, presents to the hospital after syncope episode and left-sided chest pain HOSPITAL COURSE: During the hospital stay the following issues addressed Chest pain Resolved for now EKG does not show any acute ischemic changes, troponin negative Patient has multiple risk factors for ischemic heart diseases Patient will need stress study in the outpatient settings Continue to monitor telemetry Syncope Most likely secondary to dehydration superimposed with possible autonomic neuropathy secondary to diabetes Orthostatic vital signs checked in the morning, positive IV fluid Echo see below Continue to monitor orthostatic vital signs Hyperlipidemia Continues statin Hypertension Blood pressure under control Continue home meds Hypothyroidism TSH is low, I will decrease the dose of Synthroid Type 2 diabetes Well-controlled Insulin sliding scale Glucose level under control Electrolytes imbalance Replaced Depression Continue home meds DISCHARGE MEDICATIONS: Please see below. ALLERGIES: Please see below. PHYSICAL EXAMINATION ON DISCHARGE: VITAL SIGNS: Please see below. GENERAL APPEARANCE: NAD HEENT: no scleral icterus, no JVD, EOMI CARDIOVASCULAR: S1S2 LUNGS: CTA ABDOMEN: soft & not tender w palpitation MUSCULOSKELETAL: no cyanosis, no swelling INTEGUMENT: no generalized pallor NEUROLOGICAL: cranial nerve function from 2-12 intact intact, follows commands, speech not dysarthric LABORATORY DATA: Please see below. IMAGING: [facility] NAME: TANG CASTELAN : 1965 MEDICAL REC #: [id number] ROOM: [facility] ACCOUNT: [id number] ORDERING DOCTOR: RADHA KESSLER PATIENT STATUS: ADM Randall DICTATING DOCTOR: Nicolas Mcclure MD, [facility] REPORT #: [id number] cc: [~ rep ct ivnm] ECHOCARDIOGRAM-DOPPLER REPORT Printed: [~ rep prt dt last] [~ rep prt tm last] Page 3 of [address] [address] ECHOCARDIOGRAM-DOPPLER REPORT ECHOCARDIOGRAM-DOPPLER REPORT Printed: [~ rep prt dt last] [~ rep prt tm last] Page 1 of 3 DATE OF PROCEDURE: 07/28/2020 Age: 55 Gender: Male Height: 64 inches Weight: 280 pounds Body surface area: 2.26 m2 PATIENT LOCATION: Inpatient, PCU Room 3229. REFERRING PHYSICIAN: CHECO Clancy. INDICATION: Syncope. MEASUREMENTS: 2D Measurements: RV 4.3 cm LV 5.4 cm Septum 1.3 cm Posterior wall 1.3 cm Aortic Root 3.7 cm LA 4.6 cm LVEF 55% Doppler Measurements: AV 1.35 m/s LVOT Off angle by more than 50 degrees LVOT diameter 2.0 cm MV-E 73, A 53, E/A ratio 1.4 Early mitral deceleration time 169 msec E prime medial 7.3, A prime medial 7.6, E prime lateral 5.6 Average E/E prime ratio 11.3/PCWP 15.8 mmHg PV 0.9 m/s Pulmonary artery acceleration time 106 msec RVSP 36 mmHg IVC 1.6 cm COMMENTS: Sinus bradycardia without intraventricular conduction disturbance. Technically challenging study in light of the patient's body habitus, but diagnostically useful information was still obtained. Mild symmetrical left ventricular hypertrophy with normal wall motion. Moderate left atrial enlargement with grade 2 LV diastolic dysfunction with current estimated mean left atrial pressure upper limits of normal. Mildly dilated right heart chambers with normal wall motion and Doppler evidence of mild pulmonary hypertension. Currently normal IVC size and collapse against an elevated central venous pressure. Normal aortic dimensions. Slightly thickened edges of the aortic cusps without functional abnormality. Minimal mitral annular thickening with normal leaflet excursion and no posterior systolic buckling and only very mild mitral insufficiency. Normal appearing tricuspid valve with mild insufficiency (physiologic). No apparent intracardiac mass or pericardial effusion. DD: Nicolas Mcclure MD, [facility] 07/28/20 1723 [id number] DS: [place] 07/28/201816 <Electronically signed by Nicolas Mcclure > 07/28/201816 DS2: [~ rep ct labl] PROGNOSIS:fair ACTIVITY: [As tolerated]. DIET:cardiac DISPOSITION: 01 Home, Self-Care. ITEMS TO FOLLOWUP ON ON OUTPATIENT: Follow-up with PCP in 3-5 days DISCHARGE CONDITION: [Stable]. TIME SPENT ON DISCHARGE:40 minutes. Vital Signs/I&Os Vital Signs Date Time Temp Pulse Resp B/P (MAP) Pulse Ox O2 Delivery O2 Flow Rate FiO2 07/29/20 08:00 97.2 58 18 130/82 (98) 93 Room Air I&O- Last 24 Hours up to 6 AM 07/29/20 06:00 Intake Total 2377 ml Output Total 450 ml Balance 1927 ml Laboratory Data Labs 24H Laboratory Tests 2 07/28/20 20:00: Bedside Glucose (Misc Panel) 109H FSBS Laboratory Tests Test 07/28/20 20:00 Range/Units Bedside Glucose (Misc Panel) 109 70-105 MG/DL Discharge Medications Scheduled Atenolol (Atenolol) 50 Mg Tab, 50 MG PO DAILY, (Reported) Atorvastatin Calcium (Atorvastatin Calcium) 40 Mg Tablet, 40 MG PO QHS, (Reported) Ergocalciferol (Vitamin D2) (Vitamin D2) 50,000 Units Cap, 50,000 UNITS PO QWEEK, (Reported) TUESDAYS Gabapentin (Neurontin) 300 Mg Cap, 300 MG PO TID, (Reported) Gemfibrozil (Lopid) 600 Mg Tablet, 600 MG PO BID, (Reported) Lamotrigine (Lamotrigine) 100 Mg Tablet, 100 MG PO DAILY, (Reported) Lamotrigine (Lamotrigine) 100 Mg Tablet, 50 MG PO QHS, (Reported) Levothyroxine Sodium (Levothyroxine Sodium) 75 Mcg Tablet, 75 MCG PO DAILY@0600 Lisinopril (Lisinopril) 10 Mg Tablet, 10 MG PO DAILY, (Reported) Metformin HCl (Metformin HCl) 500 Mg Tablet, 500 MG PO BID, (Reported) Pantoprazole Sodium (Pantoprazole Sodium) 40 Mg Tab, 40 MG PO DAILY, (Reported) Quetiapine Fumarate (Quetiapine Fumarate) 50 Mg Tablet, 50 MG PO DAILY, (Reported) Sertraline HCl (Sertraline HCl) 50 Mg Tablet, 50 MG PO DAILY, (Reported) Scheduled PRN Albuterol Sulfate (Albuterol Sulfate Hfa) 8.5 Gm Hfa.aer.ad, 2 PUFFS INH QID PRN for SHORTNESS OF BREATH, (Reported) Fluticasone Propionate (Flonase Allergy Relief) 9.9 Ml [place].susp, 1 SPRAY NA BID PRN for NASAL CONGESTION, (Reported) Allergies Coded Allergies: codeine (Verified Adverse Reaction, Severe, HYPOTENSIVE/PASSSED OUT/STOPPED BREATHING, 07/27/20) HIRAM MCDONALD DO Jul 29, 2020 17:20
[2020-08-02] MEDS ORDERED: VITAMIN D 50,000 UNITS CAPSULE (ERGOCALCIFEROL 1.25MG) PO SCH (09:00)
== END 2020-07-29 13:53 | disposition home or self-care (01) ==
LOC: EDBD 18:22 → M ED 18:22 → M ED INP 23:07 → ENRESERV 07-28 01:01 → M PCU 07-28 02:15
PROVIDERS: ADMIT Family Medicine; ATTEND Family Medicine
DX: R07.89 Other chest pain (principal); R55 Syncope and collapse; E87.8 Other disorders of electrolyte and fluid balance, not elsewhere classified; G31.84 Mild cognitive impairment of uncertain or unknown etiology; E11.42 Type 2 diabetes mellitus with diabetic polyneuropathy; Z79.84 Long term (current) use of oral hypoglycemic drugs; Z79.4 Long term (current) use of insulin; Z79.899 Other long term (current) drug therapy; I10 Essential (primary) hypertension; E78.49 Other hyperlipidemia; E03.9 Hypothyroidism, unspecified; F32.9 Major depressive disorder, single episode, unspecified; K21.9 Gastro-esophageal reflux disease without esophagitis; E55.9 Vitamin D deficiency, unspecified; Z88.5 Allergy status to narcotic agent; M25.562 Pain in left knee; Z91.81 History of falling
CPT/HCPCS: 36415; 71045; 71275; 73564; 80048; 80053; 82248; 82550; 82553; 83036; 83690; 83735; 83880; 84443; 85025; 87631; 93005; 93041; 93306; 96360; 96361; 96372; 97161; 99285; J1650; J3475; Q9967

== ENCOUNTER 2021-03-17 13:48 | Outpatient (RCR) | payer OTHER ==
[~2021-03-17 13:48] MED LIST changes: +ALBU8.5H INH; +ATOR40TA75 PO; +ERGO500029 PO; +FLON1SPR; +LAMO100T3 PO; +LEVO75TA4 PO; +LEVO88TA3 PO; -LISI-898 PO; +LISI10TA22 PO; +LISI5TAB11 PO; +LOPI600T PO; +METF-839 PO; -QUET50TA3; +QUET50TA4; +QUET50TA4 PO; +SERT50TA29 PO
== END 2021-03-27 ==
LOC: M PT 13:48
PROVIDERS: ATTEND Nurse Practitioner
DX: M54.16 Radiculopathy, lumbar region (principal); M54.42 Lumbago with sciatica, left side; G89.29 Other chronic pain

== ENCOUNTER → 2022-01-17 | Outpatient (CLI) | payer OTHER ==
[~2022-01-17] MED LIST changes: +TIZA10TA PO
== END ==
LOC: M LABSMTC 10:27
PROVIDERS: ATTEND Anesthesiology
DX: Z01.812 Encounter for preprocedural laboratory examination (principal); Z20.822 Contact with and (suspected) exposure to COVID-19

== ENCOUNTER → 2022-03-21 | Outpatient (CLI) | payer OTHER ==
[~2022-03-21] MED LIST changes: +LAMO200T3; +LISI40TA4 PO
== END ==
LOC: M LABSMTC 10:31
PROVIDERS: ATTEND Anesthesiology
DX: Z01.818 Encounter for other preprocedural examination (principal); Z11.52 Encounter for screening for COVID-19

== ENCOUNTER 2022-03-26 07:43 | Day surgery (SDC) | payer OTHER ==
[~2022-03-26] VITALS: Ht 182.9 cm; Wt 127.9 kg
[~2022-03-26 07:43] MED LIST changes: +NS 1,000 ML IV ONE
[2022-03-26] MEDS ORDERED: propofoL 200 MG/20 ML VIAL As Ordered ONE (09:24)
[2022-03-26] MEDS ORDERED: LIDOCAINE 2% 100MG/5ML SDV (FOR ANES.) As Ordered ONE (09:24)
[2022-03-26 10:10] VITALS: BP 168/88
== END 2022-03-26 10:55 | disposition home or self-care (01) ==
LOC: M OPP 07:43
PROVIDERS: ATTEND Internal Medicine Gastroenterology
DX: Z12.11 Encounter for screening for malignant neoplasm of colon (principal); Z80.0 Family history of malignant neoplasm of digestive organs; D12.2 Benign neoplasm of ascending colon; D12.4 Benign neoplasm of descending colon; K57.30 Diverticulosis of large intestine without perforation or abscess without bleeding; K64.8 Other hemorrhoids; Z79.02 Long term (current) use of antithrombotics/antiplatelets; Z79.51 Long term (current) use of inhaled steroids; Z79.84 Long term (current) use of oral hypoglycemic drugs; Z79.890 Hormone replacement therapy; Z79.891 Long term (current) use of opiate analgesic; Z79.899 Other long term (current) drug therapy; F17.220 Nicotine dependence, chewing tobacco, uncomplicated; I10 Essential (primary) hypertension; E78.5 Hyperlipidemia, unspecified; E11.9 Type 2 diabetes mellitus without complications; E03.9 Hypothyroidism, unspecified; G47.33 Obstructive sleep apnea (adult) (pediatric); G43.909 Migraine, unspecified, not intractable, without status migrainosus; J44.9 Chronic obstructive pulmonary disease, unspecified; Z86.69 Personal history of other diseases of the nervous system and sense organs; Z86.711 Personal history of pulmonary embolism; Z80.42 Family history of malignant neoplasm of prostate